=== PATIENT | female | born 1995 ===

== ENCOUNTER → 2018-04-30 | Outpatient (CLI) | payer OTHER, MEDICAID ==
[~2018-04-30] MED LIST: AZIT1PAC23 PO; NORG1TAB74 PO; OXYC-865 PO
== END ==
LOC: LAB 14:00
PROVIDERS: ATTEND Student in an Organized Health Care Education/Training Program
DX: N89.8 Other specified noninflammatory disorders of vagina (principal)
CPT/HCPCS: 87210; 87491; 87591

== ENCOUNTER → 2018-09-03 | Outpatient (CLI) | payer OTHER, MEDICAID ==
[~2018-09-03] MED LIST changes: +[UNRECOGNIZED DRUG - CODE] MC
== END ==
LOC: LAB 09:24
PROVIDERS: ATTEND Student in an Organized Health Care Education/Training Program
DX: Z11.3 Encounter for screening for infections with a predominantly sexual mode of transmission (principal); Z11.9 Encounter for screening for infectious and parasitic diseases, unspecified
CPT/HCPCS: 87491; 87591